=== PATIENT | female | born 1940 | race Caucasian/White ===

== ENCOUNTER 2021-06-30 10:14 | Outpatient (CLI) | payer MEDICARE, MEDICAID | END 2021-06-30 10:15 | disposition home or self-care (01) | LOC: CSHULT 10:14 | PROVIDERS: ATTEND Pediatrics Pediatric Cardiology | DX: R79.89 Other specified abnormal findings of blood chemistry (principal); K76.0 Fatty (change of) liver, not elsewhere classified | CPT/HCPCS: 76705 ==

== ENCOUNTER 2023-01-08 14:08 | Emergency (ER) | payer OTHER, MEDICAID ==
[2023-01-08] MEDS ORDERED: Scopolamine 1.5 mg/72 hour Patch TOP SCH (16:30)
== END 2023-01-08 17:01 | disposition home or self-care (01) ==
LOC: CSHERS 14:08
DX: G25.81 Restless legs syndrome (principal); K11.7 Disturbances of salivary secretion; I10 Essential (primary) hypertension; E78.5 Hyperlipidemia, unspecified; Z79.82 Long term (current) use of aspirin; Z79.899 Other long term (current) drug therapy
CPT/HCPCS: 99283

== ENCOUNTER 2023-03-19 10:29 | Outpatient (CLI) | payer OTHER, MEDICAID | END 2023-03-19 10:30 | disposition home or self-care (01) | LOC: CSHULT 10:29 | PROVIDERS: ATTEND Nurse Practitioner Family | DX: R74.01 Elevation of levels of liver transaminase levels (principal) | CPT/HCPCS: 76700 ==

== ENCOUNTER 2023-07-29 08:48 | Outpatient (CLI) | payer OTHER, MEDICAID ==
[2023-07-29] MEDS ORDERED: Iopamidol 300 61% 100 ML VIAL FS ONE (10:06)
== END 2023-07-29 08:49 | disposition home or self-care (01) ==
LOC: CSHCT 08:48
PROVIDERS: ATTEND Otolaryngology
DX: K11.7 Disturbances of salivary secretion (principal)
CPT/HCPCS: 70491

== ENCOUNTER 2024-01-24 05:34 | Day surgery (SDC) | payer OTHER, MEDICAID ==
[2024-01-14 11:08] VITALS: BMI 25.6
[2024-01-24] MEDS ORDERED: CEFAZOLIN 2 GM VIAL ONE (06:19)
[2024-01-24] MEDS ORDERED: EPINEPHrine 1 MG/ML VIAL ONE (06:19)
[2024-01-24] MEDS ORDERED: Mupirocin 2% Ointment 22 GM Tube ONE (06:20)
[2024-01-24] MEDS ORDERED: SUGAMMADEX SODIUM 200 MG/2 ML VIAL ONE (06:28)
[2024-01-24] MEDS ORDERED: Ondansetron PF 4 MG/2 ML Vial ONE (06:28)
[2024-01-24] MEDS ORDERED: fentaNYL 50 mcg/mL 1 mL Vial ONE (06:28)
[2024-01-24] MEDS ORDERED: PROPOFOL 20 ML ONE (06:28)
[2024-01-24] MEDS ORDERED: Dexmedetomidine 200 MCG/2 ML VIAL ONE (06:28)
[2024-01-24] MEDS ORDERED: Lidocaine 1% PF 5 ML VIAL ONE (06:28)
[2024-01-24] MEDS ORDERED: Dexamethasone 20 MG/5 ML VIAL ONE (06:28)
[2024-01-24] MEDS ORDERED: Rocuronium Bromide 10 MG/ML (10ML VIAL) ONE (06:28)
[2024-01-24] MEDS ORDERED: Tranexamic Acid 1,000 MG/10 ML VIAL ONE (07:10)
[2024-01-24] MEDS ORDERED: ePHEDrine Sulfate 50 MG/10 ML VIAL ONE (07:13)
[2024-01-24] MEDS ORDERED: HYDROcodone/Acetaminophen 5/325 mg Tablet ONE (10:18)
== END 2024-01-24 10:58 | disposition home or self-care (01) ==
LOC: CSHSDC 05:34
PROVIDERS: ATTEND Otolaryngology
PROC: 09BM3ZZ Excision of Nasal Septum, Percutaneous Approach (ICD-10-PCS; principal; 2024-01-24)
PROC: 09TX8ZZ Resection of Left Sphenoid Sinus, Via Natural or Artificial Opening Endoscopic (ICD-10-PCS; 2024-01-24)
DX: J32.3 Chronic sphenoidal sinusitis (principal); K11.7 Disturbances of salivary secretion; G24.01 Drug induced subacute dyskinesia; B47.9 Mycetoma, unspecified; H81.12 Benign paroxysmal vertigo, left ear; H26.9 Unspecified cataract; G47.30 Sleep apnea, unspecified; I10 Essential (primary) hypertension; Z79.899 Other long term (current) drug therapy; E78.5 Hyperlipidemia, unspecified; K21.9 Gastro-esophageal reflux disease without esophagitis; F03.90 Unspecified dementia, unspecified severity, without behavioral disturbance, psychotic disturbance, mood disturbance, and anxiety; Z98.890 Other specified postprocedural states; F41.9 Anxiety disorder, unspecified; F32.A Depression, unspecified
CPT/HCPCS: 30520; 31288; 61782; J0171; J1100; J2405; J2704; J3010; 88305; 88312